=== PATIENT | male | born 1980 | race Caucasian/White ===

== ENCOUNTER 2020-02-15 13:47 | Outpatient (REF) | payer BC, SELFPAY ==
[2020-02-15 20:58] LABS: HCT 47.7 % (40.0-50.0); HGB 16.2 g/dL (13.5-17.5); MCV 88.3 fL (80-95); Platelet Count 229 10^3/uL (130-400); RDW-SD 38.9 fL; WBC 6.03 10^3/uL (4.4-10.8)
[2020-02-15 21:24] LABS: ALT 45 U/L (16-63); AST 17 U/L (15-37); Albumin 4.1 g/dL (3.4-5.0); Alkaline Phosphatase 72 U/L (46-116); Anion Gap 8.6 mmol/L (3-11); BUN 14 mg/dL (7-18); Bilirubin, Total 0.5 mg/dL (0.2-1.0); CO2 28.4 mmol/L (21.0-32.0); CREATININE 1.13 mg/dL (0.70-1.30); Calcium 9.4 mg/dL (8.5-10.1); Calculated LDL 167 mg/dL (<100); Chloride 105 mmol/L (98-107); Cholesterol 238 mg/dL (<200); Glucose 104 mg/dL (74-106); HDL Cholesterol 51 mg/dL (40-60); Potassium 4.6 mmol/L (3.5-5.1); Sodium 142 mmol/L (136-145); Total Protein 7.2 g/dL (6.4-8.2); Triglyceride 100 mg/dL (<150)
== END 2020-02-15 14:07 ==
LOC: NCHCN 13:47
PROVIDERS: PCP Family Medicine; Visit Provider Family Medicine
DX: Z00.00 Encounter for general adult medical examination without abnormal findings (principal); Z13.220 Encounter for screening for lipoid disorders; Z13.0 Encounter for screening for diseases of the blood and blood-forming organs and certain disorders involving the immune mechanism; Z13.228 Encounter for screening for other metabolic disorders
CPT/HCPCS: 80053; 80061; 85027

== ENCOUNTER 2024-11-26 12:43 | Outpatient (REF) | payer BC, SELFPAY ==
[2024-11-26 17:08] LABS: ALT 26 U/L (16-63); AST 16 U/L (15-37); Albumin 4.0 g/dL (3.4-5.0); Alkaline Phosphatase 71 U/L (46-116); Anion Gap 7.6 mmol/L (3-11); BUN 14 mg/dL (7-18); Bilirubin, Total 0.7 mg/dL (0.2-1.0); CO2 28.4 mmol/L (21.0-32.0); Calcium 9.3 mg/dL (8.5-10.1); Calculated LDL 149 mg/dL (<100); Chloride 103 mmol/L (98-107); Cholesterol 216 mg/dL (<200); Estimated GFR 84.37 (mL/min/1.73m2); Glucose 100 mg/dL (74-106); HDL Cholesterol 48 mg/dL (>or=40); Potassium 4.4 mmol/L (3.5-5.1); Sodium 139 mmol/L (136-145); Total Protein 7.0 g/dL (6.4-8.2); Triglyceride 97 mg/dL (<150)
== END 2024-11-26 12:44 | disposition home or self-care (01) ==
LOC: NCHCN 12:43
PROVIDERS: PCP Family Medicine; Visit Provider Family Medicine
DX: Z00.00 Encounter for general adult medical examination without abnormal findings (principal)
CPT/HCPCS: 80053; 80061

== ENCOUNTER 2024-12-27 10:35 | Day surgery (SDC) | payer BC, SELFPAY ==
[2024-12-27 10:50] VITALS: BP 111/81; PULSE 71; RESP 16; TEMP 35.8; O2SAT 95
--- NOTE | 2024-12-27 10:57 | W.ANESPRE ---
General Info Date of Service Date Performed: 12/27/24 Height: 6 ft 2 in Weight: 97.5 kg Body Mass Index (BMI): 27.6 Surgical Procedure: Operation Date: 12/27/24 11:50 Proposed Procedure Side Surgeon p Colonoscopy Delmi Dior MD Meds Allergies and Home Medications Allergies Allergy/AdvReac Type Severity Reaction Status Date / Time No Known Allergies Allergy Verified 12/27/24 10:48 Home Medication ?Medication ?Instructions ?Recorded bisacodyl 5 mg tablet,delayed 5 mg PO ONCE colonscopy bowel prep 12/12/24 release (Dulcolax (bisacodyl)) #4 tabs polyethylene glycol 3350 17 238 g PO ONCE colonoscopy prep 12/12/24 gram/dose oral powder #238 grams Current Visit Medications: Current Medications Generic Name Dose Route Start Last Admin Trade Name Freq PRN Reason Stop Dose Admin Ringer's Solution 1,000 mls @ 80 mls/hr 12/27/24 06:00 IV 12/27/24 23:59 INFUSION YIN IV Miscellaneous Supplies 1 each 12/27/24 06:00 Iv Access IV 12/27/24 23:59 DIRECTED YIN Sodium Biphosphate/Sodium Phosphate 133 ml 12/27/24 06:00 Na Phosphate Enema-Adult 133 Ml Btl OR 12/27/24 23:59 DIRECTED PRN Sodium Chloride 0 ml 12/27/24 06:00 Normal Saline Flush 10 Ml Syr IV 12/27/24 23:59 PRN PRN Sodium Chloride 0 ml 12/27/24 06:00 Normal Saline 10 Ml Vial IJ 12/27/24 23:59 DIRECTED PRN Sterile Water 0 ml 12/27/24 06:00 Water,Injection,Sterile 10 Ml Vial IJ 12/27/24 23:59 DIRECTED PRN PFSH Active Problems Active Problems: Problem Status Onset Code 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 Medical History Medical History Acquired absence of organ Sleep apnea Backache Impacted cerumen Surgical History Surgical History History of appendectomy Tobacco Smoking/Tobacco Use Status: Former Tobacco Use Passive smoking exposure: Yes Alcohol Alcohol Intake: current Alcohol intake frequency: a few times a week Alcohol type: beer Substance Use Substance use: Occasionally Substance use type: marijuana Vital Signs and Lab Results Vital Signs Most Recent Vital Signs in EMR: Most Recent Vital Signs Temp Pulse Resp BP Pulse Ox 35.8 C L 71 16 111/81 95 12/27/24 10:50 12/27/24 10:50 12/27/24 10:50 12/27/24 10:50 12/27/24 10:50 Anesthesia Assessment and Plan Anesthesia History Personal History: No History of Anesthesia Complications Family History: No Family History of Anesthesia Complications Exercise Tolerance Exercise Tolerance: Metabolic Equivalents>4 Pertinent Negatives Pertinent Negatives: No Symptoms of GERD Cardiac & Pulmonary Exam Cardiac Exam: Normal S1/S2 Heart Sounds Pulmonary Exam: Clear Bilateral Breath Sounds Implantable Cardiac Device Does patient have a Pacemaker or an ICD?: No Airway Exam Known Difficult Airway: No Mallampati Class: 1 Mouth Opening: Normal (> 3cm) Thyromental Distance: Greater than 3 cm Neck Range of Motion: Full ROM Neck Circumference: Normal Teeth Condition: Normal Dentition ASA Classification ASA Score: ASA 2 Emergency Case?: No NPO Status NPO Status: NPO Clears >2 hours, Solids >8 hours Anesthesia Plan Resuscitation Status: Full Code Anesthesia Technique: General Anesthesia Airway Planned: Natural Airway Monitors Used: Standard Monitors
[2024-12-27 10:59] VITALS: BMI 27.6
[2024-12-27] MEDS: Lactated Ringers 1,000 ML 80 ML IV (11:01)
--- NOTE | 2024-12-27 11:08 | W.PM.DSUDISC ---
Date of service: 12/27/24 Discharge Plan Disposition Patient Disposition: Home Condition: Stable Discharge Details Attending Provider: Delmi Dior Primary Care Provider: Soila Cameron Home Meds and New Rx's Prescriptions: Discontinued bisacodyl [Dulcolax (bisacodyl)] 5 mg tablet,delayed release (DR/EC) 5 mg PO ONCE Qty: 4 0RF Rx Instructions: take per colonoscopy instructions polyethylene glycol 3350 17 gram/dose powder 238 g PO ONCE Qty: 238 0RF Rx Instructions: take per colonoscopy instructions Discharge Instructions Instructions: Diverticulosis (DC), High-fiber diet Additional Instructions: Normal screening colonoscopy, zero polyps. Average risk patient. Next screening colonoscopy will be due in 10 years. High fiber diet or fiber supplement recommended for diverticulosis. This will help prevent diverticulitis. Stand Alone Forms: Anesthesia Discharge Inst., Colonoscopy Post Instructions, Caitie Hicks ([facility]) Activity:: Activity as Tolerated Diet:: As Tolerated Discharge Orders Discharge Orders: Discharge Order (Routine); Ordered 12/27/24 Ordered By: Delmi Dior DS: Diagnosis Discharge Diagnosis (1) Screening for colorectal cancer: Status: Acute (2) Diverticulosis of colon: Status: Acute
--- NOTE | 2024-12-27 11:11 | W.COLOREPORT ---
Date of service: 12/27/24 Time of Service: 11:31 Colonoscopy Report Pre-op diagnosis general: Screening for colorectal cancer Post-op diagnosis procedure note: same (diverticulosis of sigmoid colon) Procedure: Colonoscopy Surgeon: Delmi Dior Anesthesia Type: General:No Airway Estimated blood loss (mL): 0 Pathology: none sent Complications: None Indications: screening for colorectal cancer Prep: Miralax/Dulcolax (excellent) Procedure Description: Patient is here for routine screening colonoscopy. Informed consent was obtained and the patient was taken to the procedure area. The patient was placed in left lateral decubitus position on the procedure table. Timeout was performed. Anesthesia was induced. A lubricated colonoscope was inserted through the anus and passed to the cecum. The cecum was identified by the ileocecal valve and the appendiceal orifice. The scope was then slowly withdrawn and the colonic and rectal mucosa examined. There are no colon or rectal mass lesions, polyps, AVMs. There is no inflammatory change. Sigmoid divertiiculosis noted, small mouthed, moderate. The scope was retroflexed in the anorectal junction examined. Uncomplicated internal hemorrhoids present. Assessment and plan; Normal screening colonoscopy. Average risk patient. Next screening colonoscopy will be due in 10 years. High fiber diet or fiber supplement for diverticulosis.
--- NOTE | 2024-12-27 11:17 | W.ANESPOSTOP ---
Postoperative Evaluation Date, Time and Location Date Performed: 12/27/24 Time Performed: 11:10 Patient Location: Day Surgery Unit Vital Signs Most Recent Imported Vital Signs: Most Recent Vital Signs Temp Pulse Resp BP Pulse Ox 35.8 C L 71 16 111/81 95 12/27/24 10:50 12/27/24 10:50 12/27/24 10:50 12/27/24 10:50 12/27/24 10:50 Pain Score Most Recent Pain Score: Most Recent Pain Score Pain Level 0 12/27/24 10:50 Assessment Mental Status: Awake (Alert & Oriented to Patient Baseline) Airway and Respiratory Function: Patent airway with normal (patient baseline) respiratory exam Cardiovascular Function: Hemodynamically Stable Hydration Status: Adequately Hydrated Nausea & Vomiting: No Nausea or Vomiting Pain: Pt. Denies Any Pain Peripheral Nerve Block: Patient did not receive a nerve block
[2024-12-27 11:34] VITALS: BP 109/70; PULSE 65; RESP 18; TEMP 36.5; O2SAT 92
[2024-12-27 11:41] VITALS: BP 95/73; PULSE 60; RESP 18; O2SAT 92
[2024-12-27 12:05] VITALS: BP 103/76; PULSE 53; RESP 16; TEMP 36.5; O2SAT 95
== END 2024-12-27 12:18 | disposition home or self-care (01) ==
LOC: SUR 10:35
PROVIDERS: PCP Family Medicine; Visit Provider Surgery
PROC: 0DJD8ZZ Inspection of Lower Intestinal Tract, Via Natural or Artificial Opening Endoscopic (ICD-10-PCS; CPT 45378; principal; 2024-12-27 11:45)
DX: Z12.11 Encounter for screening for malignant neoplasm of colon (principal); Z12.12 Encounter for screening for malignant neoplasm of rectum; K57.30 Diverticulosis of large intestine without perforation or abscess without bleeding
CPT/HCPCS: 45378; J2704